=== PATIENT | male | born 1950 | race Asian ===

== ENCOUNTER 2020-06-17 13:48 | Inpatient (IN) | payer MEDICARE ==
[~2020-06-17] VITALS: Ht 175.3 cm; Wt 104.3 kg
[2020-06-17 14:38] LABS: BASOPHILS % (AUTO) 1 % (0-1); EOSINOPHILS % (AUTO) 1 % (1-7); LYMPHOCYTES % (AUTO) 21 % (22-44); MEAN CORPUSCULAR HEMOGLOBIN 29.5 pg (27.5-34.5); MEAN CORPUSCULAR HGB CONC 32.7 g/dL (33.2-36.2); MONOCYTES % (AUTO) 6 % (2-9); NEUTROPHILS % (AUTO) 71 % (42-75); PLATELET COUNT 241 x10^3/uL (130-400); RED BLOOD COUNT 5.19 x10^6/uL (4.38-5.82); RED CELL DISTRIBUTION WIDTH 13.9 % (9.4-14.8)
[2020-06-17 14:47] LABS: ALBUMIN 3.2 g/dL (3.4-5.0); ANION GAP 4 mmol/L (5-15); CALCIUM 8.7 mg/dL (8.5-10.1); CHLORIDE 102 mmol/L (98-107)
[2020-06-17 14:48] LABS: MD NO
[2020-06-17 14:52] LABS: ALANINE AMINOTRANSFERASE 67 U/L (12-78); ALKALINE PHOSPHATASE 93 U/L (45-117); BILIRUBIN,TOTAL 0.8 mg/dL (0.2-1.0); CREATININE 1.55 mg/dL (0.7-1.3); TOTAL PROTEIN 7.5 g/dL (6.4-8.2)
[2020-06-17] MEDS ORDERED: SODIUM CHLORIDE 0.9% 1,000ML IVBOLUS ONE ×2 (15:00→15:30)
--- NOTE | 2020-06-17 15:06 | NUR ---
PT TESTED + COVID ON SAT, SYMPTOMS OF SOB, COUGH, FEVER. FELT HE WAS GETTING WORSE. PT PLACED ON 2L O2. SPO2 94%. IV ESTABLISHED, LABS BLOOD CULTURES. VSS. PT DENIES CP, GI N/V.
[2020-06-17 15:19] LABS: BASOPHILS % (AUTO) 1 % (0-1); EOSINOPHILS % (AUTO) 1 % (1-7); LYMPHOCYTES % (AUTO) 14 % (22-44); MEAN CORPUSCULAR HEMOGLOBIN 29.8 pg (27.5-34.5); MEAN CORPUSCULAR HGB CONC 33.1 g/dL (33.2-36.2); MEAN PLATELET VOLUME 7.2 fL (7.4-10.4); MONOCYTES % (AUTO) 7 % (2-9); NEUTROPHILS % (AUTO) 78 % (42-75); PLATELET COUNT 221 x10^3/uL (130-400); RED CELL DISTRIBUTION WIDTH 13.9 % (9.4-14.8)
[2020-06-17 15:22] LABS: MD NO
[2020-06-17] MEDS ORDERED: ONDANSETRON 2MG/ML, 2ML IVPush ONE (15:30)
[2020-06-17] MEDS ORDERED: HYDROmorphone 2 MG/ML, 1ML IVPush PRN (15:30)
[2020-06-17] MEDS ORDERED: SODIUM CHLORIDE FLUSH 10ML SYR IVF ONE (15:30)
[2020-06-17] MEDS ORDERED: BISACODYL 10 MG SUPP PR PRN (17:30)
[2020-06-17] MEDS ORDERED: ACETAMINOPHEN 325 MG TABLET PO PRN (17:30)
[2020-06-17] MEDS ORDERED: DOCUSATE 100 MG CAPSULE PO PRN (17:30)
[2020-06-17] MEDS ORDERED: morphine SULFATE 10 MG/ML, 1ML IVPush PRN (17:30)
[2020-06-17] MEDS ORDERED: HYDROcodone/APAP 5/325 TABLET PO PRN (17:30)
[2020-06-17] MEDS ORDERED: POLYETHYLENE GLYCOL 17 GM PACKET PO PRN (17:30)
--- NOTE | 2020-06-17 17:34 | NUR ---
PT STOOD BEDSIDE TO VOID. PT ON HOSPITAL BED, DINNER TRAY PROVIDED RA 89%, PLACED ON 2L o2
[2020-06-17 17:49] LABS: D-DIMER 0.84 ug/mlFEU (0.00-0.52); INTERNATIONAL NORMALIZED RATIO 1.01 (0.93-1.1); PROTHROMBIN TIME 10.7 Seconds (9.6-11.5)
[2020-06-17 17:50] LABS: C-REACTIVE PROTEIN, QUANT 4.02 mg/dL (0.02-0.49)
[2020-06-17] MEDS ORDERED: REMDESIVIR 200 MG in SODIUM CHLORIDE 0.9% 250 ML IVPB ONE (18:00)
[2020-06-17] MEDS ORDERED: PHARMACY INSTRUCTION MC PRN (18:00)
[2020-06-17] MEDS ORDERED: HEPARIN 5,000 UNITS/ML, 1ML ONE (18:08)
[2020-06-17] MEDS ORDERED: DEXAMETHASONE 4 MG/ML, 1ML ONE (18:08)
[2020-06-17] MEDS ORDERED: ASCORBIC ACID 500 MG TABLET ONE (18:09)
[2020-06-17] MEDS: ASCORBIC ACID 500 MG TABLET PO SCH (18:24)
[2020-06-17] MEDS: DEXAMETHASONE 4 MG/ML, 1ML IVPush SCH (18:24)
[2020-06-17] MEDS: HEPARIN 5,000 UNITS/ML, 1ML SQ SCH (18:24)
[2020-06-17] MEDS ORDERED: DEXTROSE 4 GM TAB.CHEW PO PRN (18:30)
[2020-06-17] MEDS ORDERED: DEXTROSE 50%, 50ML SYRINGE IVPush PRN (18:30)
[2020-06-17] MEDS ORDERED: GLUCAGON 1 MG IM PRN (18:30)
[2020-06-17 18:32] LABS: HCT (SEDRATE) 45.8 % (39.2-51.8)
--- NOTE | 2020-06-17 18:48 | NUR ---
REPORT TO JALEN
--- NOTE | 2020-06-17 19:14 | NUR ---
REPORT FROM SIL[place]. PT RESTING WITH NO NEEDS AT THIS TIME. CALL LIGHT IN REACH
[2020-06-17] MEDS: SODIUM CHLORIDE 0.9% 1,000 ML IV SCH (20:10)
--- NOTE | 2020-06-17 20:27 | NUR ---
PTS MEDS RUNNING. FLUIDS RUNNING. PT ASSISTED TO BATHROOM AND HAS NO OTHER NEEDS. SON WAS AT BEDSIDE ASSISTING WITH TRANSLATION. PTS SON UPDATED ON POC AND RULES INVOLVING COVID AND VISITATION. SON AGREEABLE AND LEFT. PT NOW RESTING WITH NO NEEDS AT THIS TIME. CALL LIGHT IN REACH
[2020-06-17] MEDS: SODIUM CHLORIDE FLUSH 10ML SYR IVF SCH (21:00)
[2020-06-17 22:13] LABS: TROPONIN I < 0.015 ng/mL (0.000-0.045)
[2020-06-17] MEDS: INSULIN LISPRO 100 UNITS/ML, PEN SQ-INSULIN SCH (22:31)
--- NOTE | 2020-06-17 22:32 | NUR ---
PT RESTING. PT IN NAD. FSBG CHECKED 168. PT REFUSING INSULIN AT THIS TIME BECAUSE HE DID NOT EAT MUCH DINNER. VSS. CALL LIGHT IN REACH
[2020-06-18 01:29] VITALS: BP 128/77
[2020-06-18] MEDS: HEPARIN 5,000 UNITS/ML, 1ML SQ SCH ×2 (01:55→10:29)
[2020-06-18] MEDS ORDERED: LISI2.5T PO (05:47)
[2020-06-18] MEDS ORDERED: ASPI-515 PO (05:47)
[2020-06-18] MEDS ORDERED: ALLO100T30 PO (05:47)
[2020-06-18] MEDS ORDERED: ATOR40TA78 PO (05:47)
[2020-06-18] MEDS ORDERED: LINA5TAB PO (05:47)
[2020-06-18] MEDS ORDERED: ONDA-89 PO (05:47)
[2020-06-18] MEDS ORDERED: METF500T17 PO (05:47)
[2020-06-18] MEDS ORDERED: GLUT500T3 PO (05:47)
[2020-06-18 06:19] LABS: BASOPHILS % (AUTO) 0 % (0-1); EOSINOPHILS % (AUTO) 0 % (1-7); LYMPHOCYTES % (AUTO) 19 % (22-44); MEAN CORPUSCULAR HEMOGLOBIN 29.5 pg (27.5-34.5); MEAN CORPUSCULAR HGB CONC 32.4 g/dL (33.2-36.2); MEAN PLATELET VOLUME 7.2 fL (7.4-10.4); MONOCYTES % (AUTO) 2 % (2-9); NEUTROPHILS % (AUTO) 78 % (42-75); PLATELET COUNT 220 x10^3/uL (130-400); RED BLOOD COUNT 4.79 x10^6/uL (4.38-5.82); RED CELL DISTRIBUTION WIDTH 13.5 % (9.4-14.8)
[2020-06-18 06:28] LABS: CHLORIDE 109 mmol/L (98-107)
[2020-06-18 06:29] LABS: MD NO
[2020-06-18 06:39] LABS: ANION GAP 9 mmol/L (5-15); CALCIUM 8.4 mg/dL (8.5-10.1); CREATININE 1.17 mg/dL (0.7-1.3); TROPONIN I < 0.015 ng/mL (0.000-0.045)
[2020-06-18 07:05] VITALS: BP 125/68
[2020-06-18] MEDS: ASCORBIC ACID 500 MG TABLET PO SCH ×3 (08:52→17:55)
[2020-06-18] MEDS: SODIUM CHLORIDE FLUSH 10ML SYR IVF SCH ×2 (08:52→20:42)
[2020-06-18] MEDS: DEXAMETHASONE 4 MG/ML, 1ML IVPush SCH (08:53)
[2020-06-18] MEDS: ZINC SULFATE 220 MG CAPSULE PO SCH (08:53)
[2020-06-18] MEDS: CHOLECALCIFEROL 5,000u TAB PO SCH (08:54)
[2020-06-18] MEDS ORDERED: THIAMINE 100MG TABLET PO SCH (09:00)
[2020-06-18 09:33] LABS: ALANINE AMINOTRANSFERASE 54 U/L (12-78); ALBUMIN 2.7 g/dL (3.4-5.0); ANION GAP 9 mmol/L (5-15); CALCIUM 8.3 mg/dL (8.5-10.1); CHLORIDE 107 mmol/L (98-107); CREATININE 1.16 mg/dL (0.7-1.3)
[2020-06-18 09:38] LABS: ALKALINE PHOSPHATASE 80 U/L (45-117); BILIRUBIN,TOTAL 0.6 mg/dL (0.2-1.0); TOTAL PROTEIN 6.6 g/dL (6.4-8.2); TROPONIN I < 0.015 ng/mL (0.000-0.045)
[2020-06-18] MEDS: INSULIN LISPRO 100 UNITS/ML, PEN SQ-INSULIN SCH ×4 (10:30→20:42)
[2020-06-18] MEDS: SODIUM CHLORIDE 0.9% 1,000 ML IV SCH (12:01)
[2020-06-18 13:42] VITALS: BP 121/59
[2020-06-18] MEDS: metFORMIN 500 MG TABLET PO SCH (17:55)
[2020-06-18] MEDS: ENOXAPARIN 40 MG/0.4 ML SQ SCH (17:56)
[2020-06-18] MEDS: REMDESIVIR 100 MG in SODIUM CHLORIDE 0.9% 250 ML IVPB SCH (18:42)
[2020-06-18 19:50] VITALS: BP 123/68
[2020-06-18] MEDS: ATORVASTATIN 40 MG TABLET PO SCH (20:43)
[2020-06-19 01:23] VITALS: BP 93/50
[2020-06-19 06:31] LABS: ALBUMIN 2.7 g/dL (3.4-5.0); ANION GAP 5 mmol/L (5-15); CALCIUM 8.6 mg/dL (8.5-10.1); CHLORIDE 108 mmol/L (98-107)
[2020-06-19 06:37] VITALS: BP 106/62
[2020-06-19 06:46] LABS: ALANINE AMINOTRANSFERASE 50 U/L (12-78); ALKALINE PHOSPHATASE 74 U/L (45-117); BILIRUBIN,TOTAL 0.5 mg/dL (0.2-1.0); CREATININE 1.07 mg/dL (0.7-1.3); TOTAL PROTEIN 6.5 g/dL (6.4-8.2)
[2020-06-19] MEDS: INSULIN LISPRO 100 UNITS/ML, PEN SQ-INSULIN SCH ×4 (08:22→21:12)
[2020-06-19] MEDS: ASCORBIC ACID 500 MG TABLET PO SCH ×3 (08:22→16:46)
[2020-06-19] MEDS: SODIUM CHLORIDE FLUSH 10ML SYR IVF SCH ×2 (08:22→21:12)
[2020-06-19] MEDS: metFORMIN 500 MG TABLET PO SCH ×2 (08:22→16:45)
[2020-06-19] MEDS: CHOLECALCIFEROL 5,000u TAB PO SCH (08:23)
[2020-06-19] MEDS: ZINC SULFATE 220 MG CAPSULE PO SCH (08:23)
[2020-06-19] MEDS: DEXAMETHASONE 4 MG/ML, 1ML IVPush SCH (08:23)
[2020-06-19] MEDS: ASPIRIN 81 MG TABLET EC PO SCH (08:23)
[2020-06-19] MEDS: ALLOPURINOL 100 MG TABLET PO SCH (08:23)
[2020-06-19] MEDS: LINAGLIPTIN 5 MG TAB PO SCH (08:35)
[2020-06-19 12:56] VITALS: BP 138/84
[2020-06-19] MEDS: ENOXAPARIN 40 MG/0.4 ML SQ SCH (18:30)
[2020-06-19 18:37] VITALS: BP 118/66
[2020-06-19] MEDS: REMDESIVIR 100 MG in SODIUM CHLORIDE 0.9% 250 ML IVPB SCH (18:39)
[2020-06-19] MEDS: ATORVASTATIN 40 MG TABLET PO SCH (21:11)
[2020-06-20 01:40] VITALS: BP 111/71
[2020-06-20 06:59] VITALS: BP 110/55
[2020-06-20] MEDS: INSULIN LISPRO 100 UNITS/ML, PEN SQ-INSULIN SCH ×4 (07:00→21:32)
[2020-06-20] MEDS: ZINC SULFATE 220 MG CAPSULE PO SCH (08:08)
[2020-06-20] MEDS: LINAGLIPTIN 5 MG TAB PO SCH (08:08)
[2020-06-20] MEDS: ASPIRIN 81 MG TABLET EC PO SCH (08:08)
[2020-06-20] MEDS: ALLOPURINOL 100 MG TABLET PO SCH (08:09)
[2020-06-20] MEDS: metFORMIN 500 MG TABLET PO SCH ×2 (08:09→17:16)
[2020-06-20] MEDS: ASCORBIC ACID 500 MG TABLET PO SCH ×3 (08:09→17:16)
[2020-06-20] MEDS: DEXAMETHASONE 4 MG/ML, 1ML IVPush SCH (08:09)
[2020-06-20] MEDS: SODIUM CHLORIDE FLUSH 10ML SYR IVF SCH ×2 (08:09→21:32)
[2020-06-20] MEDS: CHOLECALCIFEROL 5,000u TAB PO SCH (08:10)
[2020-06-20 09:55] LABS: ALBUMIN 2.9 g/dL (3.4-5.0); CALCIUM 8.7 mg/dL (8.5-10.1)
[2020-06-20 10:00] LABS: ALANINE AMINOTRANSFERASE 52 U/L (12-78); ALKALINE PHOSPHATASE 71 U/L (45-117); ANION GAP 3 mmol/L (5-15); BILIRUBIN,TOTAL 0.4 mg/dL (0.2-1.0); CHLORIDE 106 mmol/L (98-107); TOTAL PROTEIN 6.5 g/dL (6.4-8.2)
[2020-06-20 12:01] VITALS: BP 126/73
[2020-06-20] MEDS: ENOXAPARIN 40 MG/0.4 ML SQ SCH (17:17)
[2020-06-20] MEDS: REMDESIVIR 100 MG in SODIUM CHLORIDE 0.9% 250 ML IVPB SCH (18:22)
[2020-06-20 19:48] VITALS: BP 146/71
[2020-06-20] MEDS: ATORVASTATIN 40 MG TABLET PO SCH (21:32)
[2020-06-21 00:52] VITALS: BP 114/63
[2020-06-21 06:04] LABS: CHLORIDE 107 mmol/L (98-107)
[2020-06-21 06:10] LABS: ALANINE AMINOTRANSFERASE 69 U/L (12-78); ALBUMIN 2.6 g/dL (3.4-5.0); ALKALINE PHOSPHATASE 63 U/L (45-117); ANION GAP 6 mmol/L (5-15); BILIRUBIN,TOTAL 0.4 mg/dL (0.2-1.0); CALCIUM 8.4 mg/dL (8.5-10.1); CREATININE 0.97 mg/dL (0.7-1.3); TOTAL PROTEIN 5.9 g/dL (6.4-8.2)
[2020-06-21 06:35] VITALS: BP 121/70
[2020-06-21] MEDS: INSULIN LISPRO 100 UNITS/ML, PEN SQ-INSULIN SCH ×3 (07:00→16:03)
[2020-06-21] MEDS: ALLOPURINOL 100 MG TABLET PO SCH (07:49)
[2020-06-21] MEDS: ASPIRIN 81 MG TABLET EC PO SCH (07:50)
[2020-06-21] MEDS: metFORMIN 500 MG TABLET PO SCH ×2 (07:50→16:03)
[2020-06-21] MEDS: ZINC SULFATE 220 MG CAPSULE PO SCH (07:50)
[2020-06-21] MEDS: DEXAMETHASONE 4 MG/ML, 1ML IVPush SCH (07:50)
[2020-06-21] MEDS: CHOLECALCIFEROL 5,000u TAB PO SCH (07:50)
[2020-06-21] MEDS: ASCORBIC ACID 500 MG TABLET PO SCH ×3 (07:50→16:03)
[2020-06-21] MEDS: SODIUM CHLORIDE FLUSH 10ML SYR IVF SCH (07:51)
[2020-06-21] MEDS: LINAGLIPTIN 5 MG TAB PO SCH (07:57)
[2020-06-21 11:48] VITALS: BP 119/74
[2020-06-21] MEDS ORDERED: ZINC220C7 PO (12:57)
[2020-06-21] MEDS ORDERED: ASCO500T9 PO (12:57)
[2020-06-21] MEDS ORDERED: DEXA4TAB PO (12:57)
[2020-06-21] MEDS: REMDESIVIR 100 MG in SODIUM CHLORIDE 0.9% 250 ML IVPB SCH (16:12)
[2020-06-21] MEDS: ENOXAPARIN 40 MG/0.4 ML SQ SCH (17:50)
== END 2020-06-21 18:15 | disposition home or self-care (01) | DRG 177 ==
LOC: ED 14:17 → EDIP 15:17 → 4EST 06-18 01:16
PROVIDERS: ADMIT Internal Medicine; ATTEND Internal Medicine
PROC: XW033E5 Introduction of Remdesivir Anti-infective into Peripheral Vein, Percutaneous Approach, New Technology Group 5 (ICD-10-PCS; principal; 2020-06-18)
DX: U07.1 COVID-19 (principal); J96.01 Acute respiratory failure with hypoxia; N17.0 Acute kidney failure with tubular necrosis; G93.40 Encephalopathy, unspecified; E11.9 Type 2 diabetes mellitus without complications; E78.5 Hyperlipidemia, unspecified; I10 Essential (primary) hypertension; J06.9 Acute upper respiratory infection, unspecified; M1A.9XX0 Chronic gout, unspecified, without tophus (tophi)
CPT/HCPCS: 36415; 71045; 80048; 80053; 82962; 83036; 83605; 83615; 83735; 84100; 84145; 84443; 84484; 85025; 85379; 85610; 85651; 86140; 87040; 93005; 96361; 96365; 96366; 99285; G0378; J1100; J1644; J1650; J1815; J7030; J7050

== ENCOUNTER 2021-04-24 10:20 | Outpatient (CLI) | payer MEDICARE ==
[~2021-04-24 10:20] MED LIST: ALLO100T30 PO; ASCO500T9 PO; ASPI-963 PO; ATOR40TA78 PO; DEXA4TAB PO; GLUT500T3 PO; LINA5TAB PO; LISI2.5T12 PO; METF500T17 PO; ONDA-89 PO; ZINC220C7 PO
== END 2021-04-24 23:59 | disposition home or self-care (01) ==
LOC: CARD 10:20
PROVIDERS: ATTEND Nurse Practitioner Family
DX: G56.03 Carpal tunnel syndrome, bilateral upper limbs (principal)
CPT/HCPCS: 95886; 95909